=== PATIENT | male | born 1995 | race Caucasian/White ===

== ENCOUNTER 2017-06-21 03:36 | Emergency (ER) | payer SELFPAY ==
[2017-06-21 03:54] VITALS: RESP 20; O2SAT 99
--- NOTE | 2017-06-21 04:10 | C.PDOC ---
History Of Present Illness <Kendra Roca N - Last Filed: 06/21/17 04:10> <Ssui Leyva - Last Filed: 06/21/17 04:20> 22 years old male presents to ED with complaints of pain to right thumb. Patient states he slipped, fell and landed on his right hand. Denies numbness, weakness, head injury, or any other physical complaints. 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 (Susi Leyva) <Kendra Roca N - Last Filed: 06/21/17 04:10> History Per: Patient History/Exam Limitations: no limitations Onset/Duration Of Symptoms: Hrs Current Symptoms Are (Timing): Still Present Quality: "Pain" Exacerbating Factor(s): Nothing Recent travel outside of the [place]: No <Susi Leyva - Last Filed: 06/21/17 04:20> Time Seen by Provider: 06/21/17 03:49 Chief Complaint (Nursing): Finger,Hand,&Wrist Past Medical History - Social History Hx Alcohol Use: No Hx Substance Use: No - Immunization History Hx Tetanus Toxoid Vaccination: No Hx Influenza Vaccination: No Hx Pneumococcal Vaccination: No <Kendra Roca N - Last Filed: 06/21/17 04:10> Reviewed: Historical Data, Nursing Documentation, Vital Signs - Medical History PMH: No Chronic Diseases Surgical History: No Surg Hx Family History: States: No Known Family Hx <Susi Leyva - Last Filed: 06/21/17 04:20> Vital Signs: Last Vital Signs Temp 98.2 F 06/21/17 03:39 Pulse 111 H 06/21/17 03:39 Resp 20 06/21/17 03:39 BP 130/84 06/21/17 03:37 Pulse Ox 99 06/21/17 04:10 Review Of Systems Constitutional: Negative for: Fever, Chills Gastrointestinal: Negative for: Nausea, Vomiting, Diarrhea Musculoskeletal: Positive for: Other (right thumb pain) Skin: Negative for: Rash Neurological: Negative for: Weakness, Numbness <Susi Leyva - Last Filed: 06/21/17 04:20> Physical Exam - Physical Exam Appears: Non-toxic, No Acute Distress Skin: Normal Color, Warm, Dry Head: Atraumatic, Normacephalic Eye(s): bilateral: Normal Inspection, PERRL, EOMI Oral Mucosa: Moist Neck: Supple Chest: Symmetrical, No Tenderness Cardiovascular: Rhythm Regular Respiratory: Normal Breath Sounds, No Decreased Breath Sounds, No Rales, No Rhonchi, No Wheezing Extremity: Tenderness (To right IP joint of right thumb; ROM causes pain ), No Deformity, No Swelling Extremity: Bilateral: Normal Color And Temperature Neurological/Psych: Oriented x3, Normal Speech, Normal Cognition, Normal Motor, Normal Sensation <Susi Leyva - Last Filed: 06/21/17 04:20> ED Course And Treatment O2 Sat by Pulse Oximetry: 99 <Kendra Roca - Last Filed: 06/21/17 04:10> Pulse Ox Interpretation: Normal Progress Note: Ordered X-Ray of right hand. X-Ray Result: - Small avulsion fracture of first IP joint. Patien placed in thumb spica support. Advised to follow up with orthopedic. <Susi Leyva - Last Filed: 06/21/17 04:20> Disposition <Kendra Roca N - Last Filed: 06/21/17 04:10> <Susi Leyva - Last Filed: 06/21/17 04:20> - Disposition Forms: [facility] (Latvian) <Kendra Roca N - Last Filed: 06/21/17 04:10> - PA / SILK HANGER / Resident Statement MD/DO has reviewed & agrees with the documentation as recorded. - Scribe Statement The provider has reviewed the documentation as recorded by the Scribe <Susi Leyva - Last Filed: 06/21/17 04:20> - Scribe Statement Carla Benites All medical record entries made by the Scribe were at my direction and personally dictated by me. I have reviewed the chart and agree that the record accurately reflects my personal performance of the history, physical exam, medical decision making, and the department course for this patient. I have also personally directed, reviewed, and agree with the discharge instructions and disposition. (Susi Leyva)
--- NOTE | 2017-06-21 04:39 | C.PDOC ---
History Of Present Illness 22 years old male presents to ED with complaints of pain to right thumb. Patient states he slipped, fell and landed on his right hand. Denies numbness, weakness, head injury, or any other physical complaints. 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 Time Seen by Provider: 06/21/17 03:49 Chief Complaint (Nursing): Finger,Hand,&Wrist History Per: Patient History/Exam Limitations: no limitations Onset/Duration Of Symptoms: Hrs Current Symptoms Are (Timing): Still Present Exacerbating Factor(s): Nothing Recent travel outside of the [place]: No Past Medical History Reviewed: Historical Data, Nursing Documentation, Vital Signs Vital Signs: Last Vital Signs Temp 98.5 F 06/21/17 04:42 Pulse 103 H 06/21/17 04:42 Resp 20 06/21/17 04:42 BP 105/71 06/21/17 04:42 Pulse Ox 99 06/21/17 04:45 - Medical History PMH: No Chronic Diseases Surgical History: No Surg Hx Family History: States: No Known Family Hx - Social History Hx Alcohol Use: No Hx Substance Use: No - Immunization History Hx Tetanus Toxoid Vaccination: No Hx Influenza Vaccination: No Hx Pneumococcal Vaccination: No Review Of Systems Constitutional: Negative for: Fever, Chills Musculoskeletal: Positive for: Other (right thumb pain) Skin: Negative for: Rash Neurological: Negative for: Weakness, Numbness Physical Exam - Physical Exam Appears: Well, Non-toxic, No Acute Distress Skin: Warm, Dry Head: Atraumatic, Normacephalic Eye(s): bilateral: Normal Inspection, PERRL, EOMI Neck: Supple Chest: Symmetrical, No Tenderness Extremity: Tenderness (IP joint of right thumb), Capillary Refill (, 2 sec), No Deformity, No Swelling, Other (ROM causes pain) Extremity: Bilateral: Normal Color And Temperature Neurological/Psych: Oriented x3, Normal Motor, Normal Sensation Gait: Steady ED Course And Treatment O2 Sat by Pulse Oximetry: 99 (RA) Pulse Ox Interpretation: Normal - Other Rad Rt hand X-Ray: Interpreted by Me, Viewed By Me Interpretation: Small avulsion fracture of first IP joint Progress Note: Ordered X-Ray of right hand. Patient placed in thumb spica splint and sling given for support . Pt is neurovascular intact. Advised to follow up with orthopedic. Orthopedic Time Out: Side verified Procedure: Splint Other:: Rt thumb Type: Thumb spica Location: Right Consent obtained: Verbal Performed by: Mid-level Provider Diagnosis: Fracture (avulsion fx of IP jt) Type: Closed Location: Right Bone: Thumb Other:: Pt tolerated well Disposition - Disposition Referrals: [facility] [place] [Outside] Anuel Yusuf MD [Staff Provider] - Disposition: HOME/ ROUTINE Disposition Time: 04:54 Condition: STABLE Additional Instructions: Take motrin or ibuprofen 600mg for pain as needed Arm elevation keep splint for support Follow up with ortho / hand surgeon Return to ER if worse Instructions: Finger Fracture (DC) Forms: [employer] (Guamanian) - Clinical Impression Clinical Impression: Fracture of thumb, right, closed - PA / DRAINLAYER / Resident Statement MD/DO has reviewed & agrees with the documentation as recorded. - Scribe Statement The provider has reviewed the documentation as recorded by the Sapnaibchristoph Benites All medical record entries made by the Scribe were at my direction and personally dictated by me. I have reviewed the chart and agree that the record accurately reflects my personal performance of the history, physical exam, medical decision making, and the department course for this patient. I have also personally directed, reviewed, and agree with the discharge instructions and disposition.
[2017-06-21 04:43] VITALS: BP 105/71; PULSE 103; TEMP 98.5
--- NOTE | 2017-06-21 12:54 | RAD ---
PROCEDURE: Right Thumb radiographs. HISTORY: pain to right thumb s/p fall COMPARISON: None. TECHNIQUE: AP radiograph of the right hand, as well as spot oblique and lateral images of thumb were obtained. FINDINGS: RIGHT THUMB: Current study reveals a displaced avulsion fracture arising from the palm are aspect base proximal phalanx 1st digit. JOINTS: As above SOFT TISSUES: Normal. OTHER FINDINGS: None. IMPRESSION: Displaced avulsion fracture base proxial phalanx palmar aspect base proximal phalanx 1st digit
== END 2017-06-21 04:53 | disposition home or self-care (01) ==
LOC: C.ER 03:36
DX: S62.501A Fracture of unspecified phalanx of right thumb, initial encounter for closed fracture (principal); W01.0XXA Fall on same level from slipping, tripping and stumbling without subsequent striking against object, initial encounter; Y92.9 Unspecified place or not applicable

== ENCOUNTER 2017-06-28 16:38 | Emergency (ER) | payer SELFPAY ==
[2017-06-28 16:52] VITALS: RESP 20
[2017-06-28 17:51] VITALS: BP 123/78; PULSE 77; TEMP 98.2; O2SAT 99
--- NOTE | 2017-06-28 17:54 | C.PDOC ---
History Of Present Illness 22 y/o male, presents to the ED with a right thumb avulsion fracture from 06/21; seen in ED then and has splint applied to right hand; currently complaining of pain. pt is taking 200mg Ibuprofen per dose instead of 600mg as recommended and and has not yet followed up with hand specialist. No further medical complaints. Time Seen by Provider: 06/28/17 17:00 Chief Complaint (Nursing): Finger,Hand,&Wrist History Per: Patient History/Exam Limitations: no limitations Onset/Duration Of Symptoms: Days (06/21/17) Current Symptoms Are (Timing): Still Present Quality: "Pain" Past Medical History Reviewed: Historical Data, Nursing Documentation, Vital Signs Vital Signs: Last Vital Signs Temp 98.2 F 06/28/17 17:50 Pulse 77 06/28/17 17:50 Resp 20 06/28/17 17:50 BP 123/78 06/28/17 17:50 Pulse Ox 99 06/28/17 20:02 - Medical History PMH: No Chronic Diseases Surgical History: No Surg Hx Family History: States: No Known Family Hx - Social History Hx Tobacco Use: No Hx Alcohol Use: No Hx Substance Use: No - Immunization History Hx Tetanus Toxoid Vaccination: No Hx Influenza Vaccination: No Hx Pneumococcal Vaccination: No Review Of Systems Musculoskeletal: Positive for: Hand Pain (right thumb) Physical Exam - Physical Exam Appears: No Acute Distress Skin: Normal Color, Warm, Dry Head: Atraumatic, Normacephalic Eye(s): bilateral: Normal Inspection Extremity: Normal ROM (right thumb dec rom), Tenderness (right thumb), No Deformity, Swelling (Splint removed, right thumb is swollen. Skin intact) Pulses: Left Radial: Normal, Right Radial: Normal Neurological/Psych: Oriented x3, Normal Speech, Normal Cognition, Normal Sensation ED Course And Treatment O2 Sat by Pulse Oximetry: 99 (RA) Pulse Ox Interpretation: Normal Medical Decision Making Medical Decision Making: Initial Impression: Right thumb fracture Initial Plan: --Motrin tab 600 mg PO --Reevaluation 6:00 om splint and padding removed; thumb swollen; skin intact, cap refill normal. new padding applied and splint and sling replaced. pt advised of the importance of being seen by a hand specialist for this injury and possible need for casting, that needs to be done by a hand specialist or orthopedist. Disposition Counseled Patient/Family Regarding: Diagnosis, Need For Followup - Disposition Referrals: Lasha Heredia III, MD [Staff Provider] - Allie Monk MD [Staff Provider] - Disposition: HOME/ ROUTINE Disposition Time: 18:09 Condition: GOOD Additional Instructions: Keep splint on thumb, Follow up with orthopedist or hand specialist as soon as possible for further evaluation of fractured thumb. Keep splint dry. Take ibuprofen 600 mg at one time by mouth (with food) every 6 hours for pain if needed. , Instructions: Fracture (DC) Forms: [employer] (Serbian), General Discharge Instructions - Clinical Impression Clinical Impression: Fracture of thumb, right, closed - Scribe Statement The provider has reviewed the documentation as recorded by the Scribchristoph He All medical record entries made by the Scribe were at my direction and personally dictated by me. I have reviewed the chart and agree that the record accurately reflects my personal performance of the history, physical exam, medical decision making, and the department course for this patient. I have also personally directed, reviewed, and agree with the discharge instructions and disposition.
== END 2017-06-28 18:17 | disposition home or self-care (01) ==
LOC: C.ER 16:38
DX: S62.501G Fracture of unspecified phalanx of right thumb, subsequent encounter for fracture with delayed healing (principal); X58.XXXD Exposure to other specified factors, subsequent encounter